=== PATIENT | female | born 1980 | race Caucasian/White ===

== ENCOUNTER 2018-05-22 09:49 | Day surgery (SDC) | payer MEDICAID ==
[~2018-05-22] VITALS: Ht 167.6 cm; Wt 90.6 kg
[2018-05-22] MEDS ORDERED: normal saline 1000ml 1,000 ML IV PRN (10:10)
[2018-05-22] MEDS ORDERED: LEVE750T6 PO (10:29)
[2018-05-22] MEDS ORDERED: SERT25TA PO (10:29)
[2018-05-22] MEDS ORDERED: BUPR150T8 PO (10:29)
[2018-05-22] MEDS ORDERED: OXYB5SYR2 PO (10:29)
[2018-05-22] MEDS ORDERED: ASPI-1264 PO (10:29)
[2018-05-22 10:53] VITALS: BP 114/74
[2018-05-22 11:31] LABS: BASOPHILS # (AUTO) 0.1 X10'3 (0-0.2); BASOPHILS % (AUTO) 0.6 % (0-1); EOSINOPHILS # (AUTO) 0.3 X10'3 (0-0.9); EOSINOPHILS % (AUTO) 2.8 % (0-6); LYMPHOCYTES # (AUTO) 1.8 X10'3 (1.1-4.8); LYMPHOCYTES % (AUTO) 19.2 % (21-51); MEAN CORPUSCULAR HEMOGLOBIN 28.8 PG (27.0-31.0); MEAN CORPUSCULAR HGB CONC 32.9 % (33.0-36.5); MEAN CORPUSCULAR VOLUME 87.5 FL (78-98); MEAN PLATELET VOLUME 9.2 FL (7.4-10.4); MONOCYTES # (AUTO) 0.8 X10'3 (0-0.9); MONOCYTES % (AUTO) 8.4 % (2-12); NEUTROPHILS # (AUTO) 6.6 X10'3 (1.8-7.7); PRE OP HEMATOCRIT 35.1 % (35.0-45.0); PRE OP HEMOGLOBIN 11.5 g/dL (12.0-16.0); PRE OP PLATELET COUNT 234 X10'3 (140-440); RED BLOOD COUNT 4.01 X10'6 (4.20-5.60); RED CELL DISTRIBUTION WIDTH 15.2 % (11.5-14.5)
[2018-05-22 11:40] LABS: ALBUMIN 3.3 G/DL (3.4-5.0); ANION GAP 9 (8-16); BLOOD UREA NITROGEN 18 MG/DL (7-18); BUN/CREATININE RATIO 21.2 (6.6-38.0); CALCIUM 8.3 MG/DL (8.5-10.1); CHLORIDE 106 MMOL/L (99-107); CREATININE 0.85 MG/DL (0.40-0.90); GLUCOSE 85 MG/DL (70-104); POTASSIUM 4.1 MMOL/L (3.5-5.1); SODIUM 141 MMOL/L (135-145); TOTAL CARBON DIOXIDE 25.6 MMOL/L (24-32); eGFR 75 ML/MIN
[2018-05-22 11:42] LABS: PROTHROMBIN TIME 10.4 SECONDS (9.0-12.0)
[2018-05-22] MEDS ORDERED: normal saline 1000ml 1,000 ML IV SCH (12:38)
[2018-05-22] MEDS ORDERED: fentaNYL/PF 50MCG/1 ML 2ML syringe IV PRN (13:40)
[2018-05-22] MEDS ORDERED: heparin sodium, porcine/PF 100unit/ml 5ML syringe ONE (13:40)
[2018-05-22] MEDS ORDERED: midazolam 2 mg/2 ml injection IV PRN (13:40)
[2018-05-22] MEDS ORDERED: LIDOcaine 1% (10mg/ml) 2ml vial ONE ×2 (13:41→14:42)
[2018-05-22] MEDS ORDERED: fentaNYL/PF 50MCG/1 ML 2ML syringe ONE ×2 (13:41→14:43)
[2018-05-22] MEDS ORDERED: midazolam 2 mg/2 ml injection ONE ×2 (13:41→14:42)
[2018-05-22] MEDS ORDERED: iohexol 300 MG/1 ML 50ml polymer ONE (14:13)
[2018-05-22 15:45] VITALS: BP 108/80
[2018-05-22 16:00] VITALS: BP 110/71
[2018-05-22 16:15] VITALS: BP 112/72
[2018-05-22 16:30] VITALS: BP 122/84
[2018-05-22 16:45] VITALS: BP 122/73
== END 2018-05-22 17:10 | disposition home or self-care (01) ==
LOC: SSTAY O 09:49
PROVIDERS: ATTEND Radiology Diagnostic Radiology
DX: T82.858A Stenosis of other vascular prosthetic devices, implants and grafts, initial encounter (principal); Y83.8 Other surgical procedures as the cause of abnormal reaction of the patient, or of later complication, without mention of misadventure at the time of the procedure; Y92.89 Other specified places as the place of occurrence of the external cause; M31.1 Thrombotic microangiopathy; F32.9 Major depressive disorder, single episode, unspecified; F41.8 Other specified anxiety disorders; Z91.048 Other nonmedicinal substance allergy status; Z87.891 Personal history of nicotine dependence; Z92.21 Personal history of antineoplastic chemotherapy; Z98.51 Tubal ligation status; Z86.2 Personal history of diseases of the blood and blood-forming organs and certain disorders involving the immune mechanism; Z86.73 Personal history of transient ischemic attack (TIA), and cerebral infarction without residual deficits; Z86.69 Personal history of other diseases of the nervous system and sense organs; Z91.040 Latex allergy status; Z79.82 Long term (current) use of aspirin; Z98.890 Other specified postprocedural states; Z79.899 Other long term (current) drug therapy; Z80.9 Family history of malignant neoplasm, unspecified
CPT/HCPCS: 36415; 36561; 36590; 71045; 76937; 77001; 80048; 85025; 85610; 99152; 99153; C1788; C1894; J1642; J2250; J3010; J3490; J7030; Q9967; A6219